=== PATIENT | male | born 1985 | race Caucasian/White ===

== ENCOUNTER 2024-04-28 18:47 | Emergency (ER) | payer BC ==
[~2024-04-28] VITALS: Ht 188 cm; Wt 123.2 kg
[2024-04-28] MEDS ORDERED: NORVASC 10MG10 MG PO (18:58)
[2024-04-28] MEDS ORDERED: HCTZ 25MG25 MG PO (18:58)
[2024-04-28] MEDS ORDERED: LOPID600 MG PO (18:58)
[2024-04-28] MEDS ORDERED: NS 1,000 ML IV SCH (19:00)
[2024-04-28] MEDS ORDERED: NS 1,000 ML IV ONE (19:00)
[2024-04-28 19:09] LABS: BASO # 0.02 K/mm3 (0.02-0.10); EOS % 1.4 % (0.0-4.0); HEMATOCRIT 41.9 % (42.0-52.0); HEMOGLOBIN 14.1 g/dL (13.5-18.0); LYMPH# 2.37 K/mm3 (1.50-4.00); MEAN CELL VOLUME 84 fl (78-100); MEAN CORPUSCULAR HEMOGLOBIN 28 pg (27-31); MEAN CORPUSCULAR HGB CONC 34 g/dL (33-37); MEAN PLATELET VOLUME 9.3 fl (7.4-10.4); MONO # 0.29 K/mm3 (0.20-0.80); NEU # 4.28 K/mm3 (1.40-6.50); PLATELET COUNT 325 K/mm3 (130-400); RED BLOOD COUNT 4.99 M/mm3 (4.20-5.60); RED CELL DISTRIBUTION WIDTH 11.8 % (11.5-14.5); WHITE BLOOD COUNT 7.1 K/mm3 (4.8-10.8)
[2024-04-28 19:18] LABS: ALBUMIN 4.9 g/dL (3.5-5.0); CALCIUM 10.4 mg/dL (8.3-10.5); CARBON DIOXIDE 20 mmol/L (22-29); GLUCOSE 147 mg/dL (75-110); SODIUM 143 mmol/L (136-145); TOTAL PROTEIN 7.3 g/dL (6.4-8.3)
[2024-04-28 19:21] LABS: AST-SGOT 19 U/L (5-34)
[2024-04-28 19:23] LABS: ALT/SGPT 33 U/L (0-55)
[2024-04-28 19:29] LABS: TROPONIN-I < 0.030 ng/mL (0.00-0.033)
[2024-04-28] MEDS ORDERED: Ketorolac 30 MG/ML VIAL IV ONE (19:30)
[2024-04-28 21:05] VITALS: BP 110/71
== END 2024-04-28 21:07 | disposition home or self-care (01) ==
LOC: ED 18:47
PROVIDERS: Family Medicine
DX: R07.89 Other chest pain (principal)
CPT/HCPCS: J1885; J7030